=== PATIENT | male | born 1970 | race Caucasian/White ===

== ENCOUNTER 2018-12-10 10:01 | Emergency (ER) | payer MEDICAID, MEDICARE ==
--- NOTE | 2018-12-10 11:00 | EDM.PDOC ---
ED HPI GENERAL MEDICAL PROBLEM - General Chief Complaint: Genitourinary Problem Stated Complaint: UTI Time Seen by Provider: 12/10/18 10:45 Source of Information: Reports: Patient, Old Records, RN History Limitations: Reports: No Limitations - History of Present Illness INITIAL COMMENTS - FREE TEXT/NARRATIVE: 48 yo male here with a complaint of 7 days of progressive dysuria. Has not been to the clinic for this. No fever. No urethral discharge. Is sexually active, not in a monogamous relationship. Says he does not have a primary care provider. Onset: Gradual Onset Date: 12/03/18 Duration: Day(s): (7), Getting Worse Location: Reports: Pelvis (urethral) Quality: Reports: Burning Severity: Mild Improves with: Reports: None Worsens with: Reports: None Context: Reports: Other (See HPI) Associated Symptoms: Reports: No Other Symptoms Treatments SOCIAL MEDIA DIRECTOR: Reports: Other (see below) (none) - Related Data Allergies Allergy/AdvReac Type Severity Reaction Status Date / Time No Known Allergies Allergy Verified 12/10/18 10:37 Home Meds: Home Meds Cyclobenzaprine [Flexeril] 10 mg PO TID PRN 12/10/18 [History] Gabapentin [Neurontin] 600 mg PO TID 12/10/18 [History] Omeprazole 20 mg PO DAILY 12/10/18 [History] Silodosin [Rapaflo] 8 mg PO BID 12/10/18 [History] Past Medical History - Past Health History Medical/Surgical History: Denies Medical/Surgical History Neurological History: Reports: Other (See Below) Other Neuro History: neuropathy - Past Surgical History Other Musculoskeletal Surgeries/Procedures:: back surgery, several surgeries Social & Family History - Tobacco Use Smoking Status *Q: Never Smoker - Recreational Drug Use Recreational Drug Use: No ED ROS GENERAL - Review of Systems Review Of Systems: See Below Constitutional: Reports: No Symptoms : Reports: Dysuria. Denies: Discharge, Frequency, Hematuria, Incontinence, Urinary Retention Skin: Reports: No Symptoms Neurological: Reports: No Symptoms ED EXAM, RENAL/ - Physical Exam Exam: See Below Exam Limited By: No Limitations General Appearance: Alert, WD/WN, No Apparent Distress Eye Exam: Bilateral Eye: Normal Inspection Nose: Normal Inspection, No Blood Throat/Mouth: Normal Lips, Normal Voice, No Airway Compromise Head: Atraumatic, Normocephalic Back Exam: Normal Inspection. No: CVA Tenderness (R), CVA Tenderness (L) Extremities: Normal Inspection Neurological: Alert, Oriented, CN II-XII Intact, Normal Cognition, No Motor/ Sensory Deficits Psychiatric: Normal Affect, Normal Mood Skin Exam: Warm, Dry, Intact, Normal Color, No Rash Lymphatic: No Adenopathy Course - Vital Signs Text/Narrative:: Bladder scan 11 ml Last Recorded V/S: Last Vital Signs Temp 36.4 C 12/10/18 10:36 Pulse 78 12/10/18 10:36 Resp 13 12/10/18 10:36 BP 132/84 12/10/18 10:36 Pulse Ox 93 L 12/10/18 10:36 - Orders/Labs/Meds Orders: Active Orders 24 hr Category Date Time Status Bladder Scan [RC] ASDIRECTED Care 12/10/18 10:48 Active CHLAMYDIA/GC AMPLIFICATION Routine Lab 12/10/18 10:54 Ordered Labs: Laboratory Tests 12/10/18 Range/Units 10:02 Urine Color Yellow Urine Appearance Clear Urine pH 6.0 (4.5-8.0) Ur Specific [place] 1.005 L (1.008-1.030) Urine Protein Negative (NEGATIVE) mg/dL Urine Glucose (UA) Normal (NEGATIVE) mg/dL Urine Ketones Negative (NEGATIVE) mg/dL Urine Occult Blood Negative (NEGATIVE) Urine Nitrite Negative (NEGAITVE) Urine Bilirubin Negative (NEGATIVE) Urine Urobilinogen Normal (NORMAL) mg/dL Ur Leukocyte Esterase Negative (NEGATIVE) Urine RBC 0-5 (0-5) Urine WBC 0-5 (0-5) Ur Epithelial Cells Few Amorphous Sediment Not seen Urine Bacteria Not seen Urine Mucus Rare Departure - Departure Time of Disposition: 11:10 Disposition: Home, Self-Care 01 Condition: Good Clinical Impression: Dysuria - Discharge Information *PRESCRIPTION DRUG MONITORING PROGRAM REVIEWED*: No *COPY OF PRESCRIPTION DRUG MONITORING REPORT IN PATIENT MICHAEL: No Instructions: Dysuria Referrals: PCP,None [Primary Care Provider] - Additional Instructions: Start doxycycline after you leave off your urine specimen after noon today. Recheck in the clinic this coming Wednesday to follow up on today's tests. - My Orders Last 24 Hours: My Active Orders 12/10/18 10:48 Bladder Scan [RC] ASDIRECTED 12/10/18 10:54 CHLAMYDIA/GC AMPLIFICATION Routine - Assessment/Plan Last 24 Hours: My Active Orders 12/10/18 10:48 Bladder Scan [RC] ASDIRECTED 12/10/18 10:54 CHLAMYDIA/GC AMPLIFICATION Routine
[2018-12-14 01:07] LABS: CHLAMYDIA TRACHOMATIS, NAA Negative (Negative); NEISSERIA GONORRHOEAE, NAA Negative (Negative)
== END 2018-12-10 11:17 | disposition home or self-care (01) ==
LOC: JP.ED 10:01
DX: R30.0 Dysuria (principal); Z79.899 Other long term (current) drug therapy
CPT/HCPCS: 51798; 81001; 87491; 87591; 99283

== ENCOUNTER 2020-02-15 20:18 | Emergency (ER) | payer MEDICARE ==
--- NOTE | 2020-02-15 21:39 | EDM.PDOC ---
ED HPI GENERAL MEDICAL PROBLEM - General Chief Complaint: General Stated Complaint: SPIDER BITE Time Seen by Provider: 02/15/20 21:15 Source of Information: Reports: Patient History Limitations: Reports: No Limitations - History of Present Illness INITIAL COMMENTS - FREE TEXT/NARRATIVE: 49-year-old male with a sore on his right shoulder that he was told was a brown recluse spider bite and should have it checked. It is tender. He has been very tired the last 2 or 3 days. No fevers or chills. 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 Denies: Fever/Chills Right Shoulder Pain Score (Numeric/FACES): 2 - Related Data Allergies Allergy/AdvReac Type Severity Reaction Status Date / Time bee venom protein (honey bee) Allergy Airway Verified 02/15/20 21:06 Tightness Home Meds: Home Meds NK [No Known Home Meds] 02/15/20 [History] Past Medical History - Past Health History Medical/Surgical History: Denies Medical/Surgical History Musculoskeletal History: Reports: Other (See Below) Other Musculoskeletal History: walks with braces. Neurological History: Reports: Other (See Below) Other Neuro History: neuropathy - Past Surgical History Musculoskeletal Surgical History: Reports: Other (See Below) Other Musculoskeletal Surgeries/Procedures:: back surgery, several surgeries Social & Family History - Tobacco Use Smoking Status *Q: Never Smoker - Caffeine Use Caffeine Use: Reports: None - Recreational Drug Use Recreational Drug Use: No ED ROS GENERAL - Review of Systems Review Of Systems: See Below Constitutional: Reports: Malaise, Other (Fatigue over the past couple of days). Denies: Fever, Chills Respiratory: Denies: Shortness of Breath Endocrine: Reports: Fatigue GI/Abdominal: Denies: Abdominal Pain, Nausea, Vomiting Skin: Reports: Erythema (Erythematous lesions on the right shoulder) Neurological: Denies: Paresthesia ED EXAM, GENERAL - Physical Exam Exam: See Below Exam Limited By: No Limitations General Appearance: Alert, No Apparent Distress Throat/Mouth: Normal Inspection Head: Atraumatic Neck: Non-Tender Respiratory/Chest: Lungs Clear Psychiatric: Normal Affect, Normal Mood Skin Exam: Warm, Dry, Other (Patient has irregular patches of small vesicles on erythematous base over the right posterior shoulder and trapezius area, it does not cross the midline to the left. They are moderately tender to palpation.) Course - Vital Signs Last Recorded V/S: Last Vital Signs Temp 97.7 F 02/15/20 21:13 Pulse 89 02/15/20 21:13 Resp 16 02/15/20 21:13 BP 116/77 02/15/20 21:13 Pulse Ox 97 02/15/20 21:13 - Re-Assessments/Exams Free Text/Narrative Re-Assessment/Exam: 02/15/20 21:37 Patient appears to have a fairly classic outbreak of shingles on the posterior shoulder and neck. He was started on acyclovir 800 mg tonight, then 400 mg 4 times a day for at least the next 7 days. He does have a recheck tomorrow for general physical, he can be reexamined at that time. Departure - Departure Time of Disposition: 21:53 Disposition: Home, Self-Care 01 Clinical Impression: Shingles outbreak Qualifiers: Herpes zoster complications: without complications Qualified Code(s): B02.9 - Zoster without complications - Discharge Information Instructions: Shingles Referrals: PCP,None [Primary Care Provider] - Forms: ED Department Discharge Care Plan Goals: Take 2 pills of antiviral tonight, tomorrow start 1 pill 4 times a day for at least 7 days, and continue taking till the rash is completely resolved. If not improving after 3 or 4 days recheck. Sepsis Event Note (ED) - Evaluation Sepsis Screening Result: No Definite Risk - Focused Exam Vital Signs: Vital Signs Temp Pulse Resp BP Pulse Ox 02/15/20 21:13 97.7 F 89 16 116/77 97 02/15/20 20:56 97.7 F 89 16 116/77 97
== END 2020-02-15 21:45 | disposition home or self-care (01) ==
LOC: JP.ED 20:18
DX: B02.9 Zoster without complications (principal); Z91.030 Bee allergy status
CPT/HCPCS: 99282

== ENCOUNTER 2021-03-22 14:39 | Emergency (ER) | payer MEDICARE ==
--- NOTE | 2021-03-22 15:35 | EDM.PDOC ---
ED HPI GENERAL MEDICAL PROBLEM - General Chief Complaint: Respiratory Problem Stated Complaint: POSSIBLE PNEUMONIA Time Seen by Provider: 03/22/21 15:20 Source of Information: Reports: Patient History Limitations: Reports: No Limitations - History of Present Illness INITIAL COMMENTS - FREE TEXT/NARRATIVE: 51-year-old male with a 3-week history of worsening cough. He thinks it started is just an irritant from the smoking here, but over the past several days it has gotten much worse at night, starting to become productive of sputum and he feels more ill. Unsure if he is having fevers or chills, he currently has no shortness of breath. He is not coughing here in the emergency room, he is very stable. No other symptoms such as nausea vomiting, rashes, sore throat or rhi nitis. He did not get Covid vaccinated Onset: Gradual Duration: Week(s): (3 weeks worth of symptoms) Associated Symptoms: Reports: Malaise, Shortness of Breath (Especially at night). Denies: Fever/Chills, Headaches Chest Pain Score (Numeric/FACES): 4 - Related Data Allergies Allergy/AdvReac Type Severity Reaction Status Date / Time bee venom protein (honey bee) Allergy Airway Verified 03/22/21 15:02 Tightness Home Meds: Home Meds Sildenafil [Revatio] 20 mg PO ASDIRECTED 03/22/21 [History] Past Medical History - Past Health History Medical/Surgical History: Denies Medical/Surgical History Musculoskeletal History: Reports: Other (See Below) Other Musculoskeletal History: walks with braces. Neurological History: Reports: Other (See Below) Other Neuro History: neuropathy - Infectious Disease History Infectious Disease History: Reports: Chicken Pox - Past Surgical History Musculoskeletal Surgical History: Reports: Other (See Below) Other Musculoskeletal Surgeries/Procedures:: back surgery, several surgeries Social & Family History - Tobacco Use Tobacco Use Status *Q: Never Tobacco User - Caffeine Use Caffeine Use: Reports: None - Recreational Drug Use Recreational Drug Use: No ED ROS GENERAL - Review of Systems Review Of Systems: See Below Constitutional: Reports: Malaise. Denies: Fever, Chills HEENT: Denies: Throat Pain Respiratory: Reports: Shortness of Breath, Cough, Sputum Cardiovascular: Denies: Chest Pain, Palpitations GI/Abdominal: Denies: Nausea, Vomiting Neurological: Reports: Other (Partial paralysis below the chest from a past trauma, that is stable). Denies: Headache ED EXAM, GENERAL - Physical Exam Exam: See Below Exam Limited By: No Limitations General Appearance: Alert, No Apparent Distress Eye Exam: Bilateral Eye: Normal Inspection Throat/Mouth: Normal Inspection Head: Atraumatic Respiratory/Chest: No Respiratory Distress, Lungs Clear Cardiovascular: Regular Rate, Rhythm. No: Tachycardia Psychiatric: Normal Affect, Normal Mood Skin Exam: Warm, Dry Course - Vital Signs Last Recorded V/S: Last Vital Signs Temp 97.1 F 03/22/21 15:07 Pulse 84 03/22/21 15:07 Resp 16 03/22/21 15:07 BP 131/74 03/22/21 15:07 Pulse Ox 93 L 03/22/21 15:07 - Re-Assessments/Exams Free Text/Narrative Re-Assessment/Exam: 03/22/21 15:33 Because his symptoms have been going on for 3 weeks and worsening, he will be covered with a course of Zithromax and also provided with an albuterol inhaler to use as needed shortness of breath and wheezing. Consider rechecking in 4 to 6 days if not improving satisfactorily. Departure - Departure Time of Disposition: 15:36 Disposition: Home, Self-Care 01 Clinical Impression: Bronchitis - Discharge Information Instructions: Acute Bronchitis, Adult Referrals: PCP,None [Primary Care Provider] - Forms: ED Department Discharge Care Plan Goals: Take Zithromax as prescribed, use inhaler for any shortness of breath or wheezing that you may experience in the next several days. Repeat every 3-4 hours if needed. Consider rechecking in 4 to 5 days if not improving satisfactorily, or return anytime if worsening despite treatment. Sepsis Event Note (ED) - Evaluation Sepsis Screening Result: No Definite Risk - Focused Exam Vital Signs: Vital Signs Temp Pulse Resp BP Pulse Ox 03/22/21 15:07 97.1 F 84 16 131/74 93 L 03/22/21 14:57 97.1 F 84 16 131/74 93 L
== END 2021-03-22 15:46 | disposition home or self-care (01) ==
LOC: JP.ED 14:39
DX: J40 Bronchitis, not specified as acute or chronic (principal); Z91.030 Bee allergy status
CPT/HCPCS: 99284